=== PATIENT | male | born 1965 | race African-American/Black ===

== ENCOUNTER 2018-05-10 12:00 | Emergency (ER) | payer SELFPAY ==
[~2018-05-10] VITALS: Ht 175.3 cm; Wt 83.5 kg
[2018-05-10 12:52] VITALS: BP 122/80
[2018-05-10] MEDS ORDERED: traMADol HCL 50 MG TAB PO ONE (14:00)
== END 2018-05-10 13:55 | disposition home or self-care (01) ==
LOC: ER 12:07
DX: K40.20 Bilateral inguinal hernia, without obstruction or gangrene, not specified as recurrent (principal); F17.210 Nicotine dependence, cigarettes, uncomplicated; Z88.6 Allergy status to analgesic agent
CPT/HCPCS: 74176

== ENCOUNTER 2018-10-02 02:27 | Emergency (ER) | payer MEDICAID ==
[~2018-10-02] VITALS: Ht 172.7 cm; Wt 81.6 kg
[2018-10-02 02:39] VITALS: BP 127/81
[2018-10-02] MEDS ORDERED: LORazepam 2MG/ML-1ML VIAL IV ONE (03:00)
[2018-10-02 03:06] LABS: Basophils # (auto) 0 uL; Basophils % (auto) 0.4 % (0.0-2.0); Eosinophils # (auto) 0.1 uL; Eosinophils % (auto) 1.1 % (0.0-7.0); Hematocrit 48.6 % (41.0-53.0); Hemoglobin 16.3 g/dL (13.5-17.5); Lymphocytes # (auto) 1.5 uL; Lymphocytes % (auto) 24.8 % (10.0-50.0); Mean Corpuscular Hemoglobin 29.7 pg (28.0-32.0); Mean Corpuscular Hgb Conc. 33.6 g/dL (32.0-36.0); Mean Corpuscular Volume 88.6 fL (80.0-100.0); Monocytes # (auto) 0.5 uL; Monocytes % (auto) 8.6 % (0.0-12.0); Neutrophils % (auto) 65.1 % (37.0-80.0); Nucleated Red Blood Cells % 0.9 %; Platelet Count (auto) 160 10^3/uL (140-450); Red Blood Cells 5.49 10^6/uL (4.5-5.90); Red Cell Distribution Width 14.1 % (11.8-14.3); White Blood Cell 6.1 10^3/uL (4.4-10.8)
[2018-10-02 03:22] LABS: INR 0.97 (0.9-1.15); Prothrombin Time 10.5 sec (9.06-12.60)
[2018-10-02 03:26] LABS: Alanine Aminotransferase 30 U/L (16-61); Albumin 3.9 g/dL (3.4-5.0); Anion Gap 9 (5-15); Aspartate Aminotransferase 22 U/L (15-37); BUN/Creatinine Ratio 11.7; Blood Urea Nitrogen 13 mg/dL (7-18); Calcium 9.3 mg/dL (8.5-10.1); Carbon Dioxide 24 mmol/L (21-32); Chloride 109 mmol/L (98-107); GFR African American 88 mL/min; GFR Non-African American 73 mL/min; Glucose 87 mg/dL (74-106); Magnesium 2.1 mg/dL (1.6-2.6); Sodium 142 mmol/L (136-145)
[2018-10-02 03:31] LABS: Alkaline Phosphatase 88 U/L (45-117); Bilirubin, Total 0.9 mg/dL (0.2-1.0); Total Protein 7.6 g/dL (6.4-8.2)
== END 2018-10-02 03:29 | disposition left against medical advice (07) ==
LOC: EDBD 02:27 → ER 02:31
DX: F12.10 Cannabis abuse, uncomplicated (principal); F15.10 Other stimulant abuse, uncomplicated; F17.210 Nicotine dependence, cigarettes, uncomplicated; Z88.6 Allergy status to analgesic agent
CPT/HCPCS: 36415; 80053; 83735; 83880; 84484; 85025; 85610; 85730; 93005

== ENCOUNTER 2021-05-15 06:46 | Emergency (ER) | payer MEDICAID ==
[~2021-05-15] VITALS: Ht 175.3 cm; Wt 120.2 kg
[2021-05-15 07:36] VITALS: BP 134/86
[2021-05-15 07:56] LABS: Basophils # (auto) 0 10 ^3/uL (0-0.2); Basophils % (auto) 0.7 % (0.0-2.0); Eosinophils # (auto) 0.1 10 ^3/uL (0-0.8); Eosinophils % (auto) 2.1 % (0.0-7.0); Hematocrit 41.6 % (41.0-53.0); Hemoglobin 13.8 g/dL (13.5-17.5); Lymphocytes # (auto) 1.2 10 ^3/uL (0.4-5.4); Lymphocytes % (auto) 20.5 % (10.0-50.0); Mean Corpuscular Hemoglobin 28.4 pg (28.0-32.0); Mean Corpuscular Hgb Conc. 33.1 g/dL (32.0-36.0); Mean Corpuscular Volume 85.6 fL (80.0-100.0); Monocytes # (auto) 0.6 10 ^3/uL (0-1.3); Monocytes % (auto) 11.4 % (0.0-12.0); Neutrophils # (auto) 3.7 10 ^3/uL (1.6-8.6); Neutrophils % (auto) 65.3 % (37.0-80.0); Nucleated Red Blood Cells % 0.1 %; Red Blood Cells 4.86 10^6/uL (4.5-5.90); Red Cell Distribution Width 17.3 % (11.8-14.3); White Blood Cell 5.6 10^3/uL (4.4-10.8)
[2021-05-15 08:15] LABS: Albumin 3.6 g/dL (3.4-5.0); Calcium 8.7 mg/dL (8.5-10.1); Potassium 4.1 mmol/L (3.5-5.1)
[2021-05-15 08:18] LABS: Bilirubin, Total 0.5 mg/dL (0.2-1.0); Total Protein 7.4 g/dL (6.4-8.2); Uric Acid 8.6 mg/dL (3.5-7.2)
[2021-05-15] MEDS ORDERED: HYDROcodone-ACET 5/325MG TAB PO ONE (09:15)
[2021-05-15] MEDS ORDERED: COLC1TAB3 PO (09:49)
[2021-05-15] MEDS ORDERED: INDO25CA17 PO (09:49)
== END 2021-05-15 10:13 | disposition home or self-care (01) ==
LOC: ER 06:46
DX: R60.9 Edema, unspecified (principal); M10.9 Gout, unspecified; M79.89 Other specified soft tissue disorders; I10 Essential (primary) hypertension
CPT/HCPCS: 36415; 80053; 83880; 84550; 85025; 93971

== ENCOUNTER 2021-07-26 13:59 | Emergency (ER) | payer MEDICAID ==
[~2021-07-26] VITALS: Ht 175.3 cm; Wt 122.5 kg
[~2021-07-26 13:59] MED LIST: COLC1TAB3 PO; INDO25CA17 PO
[2021-07-26 14:08] VITALS: BP 126/90
[2021-07-26] MEDS ORDERED: INDOMETHACIN 25 MG CAP PO ONE (14:30)
[2021-07-26] MEDS ORDERED: INDO50CA82 PO (16:59)
== END 2021-07-26 17:30 | disposition home or self-care (01) ==
LOC: ER 13:59
DX: M10.9 Gout, unspecified (principal); M79.10 Myalgia, unspecified site; I10 Essential (primary) hypertension; F17.210 Nicotine dependence, cigarettes, uncomplicated; Z79.899 Other long term (current) drug therapy; Z88.6 Allergy status to analgesic agent
CPT/HCPCS: 36415; 84550

== ENCOUNTER 2022-05-28 05:23 | Emergency (ER) | payer MEDICAID ==
[~2022-05-28] VITALS: Ht 175.3 cm; Wt 130.0 kg
[~2022-05-28 05:23] MED LIST changes: +INDO50CA82 PO
[2022-05-28] MEDS ORDERED: SODIUM CHLORIDE 0.9% 1,000 ML IVB ONE (08:00)
[2022-05-28 08:45] LABS: Albumin 3.6 g/dL (3.4-5.0); Anion Gap 4 (5-15); Blood Alcohol < 3.0 mg/dL (0-5); Blood Urea Nitrogen 12 mg/dL (7-18); Calcium 8.7 mg/dL (8.5-10.1); Carbon Dioxide 26 mmol/L (21-32); Chloride 109 mmol/L (98-107); Glucose 89 mg/dL (74-106); Magnesium 2.9 mg/dL (1.6-2.6); Potassium 3.8 mmol/L (3.5-5.1); Sodium 139 mmol/L (136-145)
[2022-05-28 08:47] LABS: Basophils # (auto) 0 10 ^3/uL (0-0.2); Basophils % (auto) 0.1 % (0.0-2.0); Eosinophils # (auto) 0 10 ^3/uL (0-0.8); Eosinophils % (auto) 0.2 % (0.0-7.0); Hematocrit 51.8 % (41.0-53.0); Hemoglobin 16.3 g/dL (13.5-17.5); Lymphocytes # (auto) 0.7 10 ^3/uL (0.4-5.4); Mean Corpuscular Hemoglobin 28.7 pg (28.0-32.0); Mean Corpuscular Hgb Conc. 31.5 g/dL (32.0-36.0); Monocytes # (auto) 0.8 10 ^3/uL (0-1.3); Monocytes % (auto) 6.2 % (0.0-12.0); Neutrophils # (auto) 10.8 10 ^3/uL (1.6-8.6); Neutrophils % (auto) 87.5 % (37.0-80.0); Nucleated Red Blood Cells % 0.1 %; Red Blood Cells 5.69 10^6/uL (4.5-5.90); Red Cell Distribution Width 14.5 % (11.8-14.3); White Blood Cell 12.3 10^3/uL (4.4-10.8)
[2022-05-28 08:48] LABS: Alanine Aminotransferase 40 U/L (16-61); Alkaline Phosphatase 116 U/L (45-117); Aspartate Aminotransferase 26 U/L (15-37); BUN/Creatinine Ratio 11.7; Bilirubin, Total 0.6 mg/dL (0.2-1.0); GFR African American 95 mL/min; GFR Non-African American 79 mL/min; Total Protein 7.1 g/dL (6.4-8.2)
[2022-05-28 09:40] LABS: Urine Bacteria NONE SEEN /hpf (None Seen); Urine Blood Negative /uL (Negative); Urine Specific Gravity 1.012 (1.001-1.035); Urine WBC 4 /hpf (0 - 3)
[2022-05-28 09:44] LABS: Alcohol, Urine < 3.0 mg/dL (0-10); Amphetamine Screen, Urine POSITIVE (NEGATIVE); Barbiturate Scree,Urine NEGATIVE (NEGATIVE); Benzodiazephine Screen, Urine NEGATIVE (NEGATIVE); Cannabinoid Screen, Urine NEGATIVE (NEGATIVE); Cocaine Screen, Urine NEGATIVE (NEGATIVE); Opiate Scree,Urine NEGATIVE (NEGATIVE); Phencyclidine Screen, Urine NEGATIVE (NEGATIVE)
[2022-05-28] MEDS ORDERED: HYDROcodone-ACET 10/325MG TAB PO ONE (13:00)
[2022-05-28] MEDS ORDERED: HYDR-4902 PO (16:01)
[2022-05-28] MEDS ORDERED: AMOX600S PO (16:01)
[2022-05-28] MEDS ORDERED: CYCL-837 PO (16:01)
[2022-05-28] MEDS ORDERED: AMOX500T86 PO (16:06)
[2022-05-29 08:30] VITALS: BP 91/43
== END 2022-05-29 10:14 | disposition home or self-care (01) ==
LOC: EDBD 05:23 → ER 05:23
DX: S01.81XA Laceration without foreign body of other part of head, initial encounter (principal); S05.12XA Contusion of eyeball and orbital tissues, left eye, initial encounter; S60.922A Unspecified superficial injury of left hand, initial encounter; J32.0 Chronic maxillary sinusitis; M47.892 Other spondylosis, cervical region; I10 Essential (primary) hypertension; F17.210 Nicotine dependence, cigarettes, uncomplicated; F12.90 Cannabis use, unspecified, uncomplicated; F15.90 Other stimulant use, unspecified, uncomplicated; Z79.899 Other long term (current) drug therapy; Z88.6 Allergy status to analgesic agent; Y04.2XXA Assault by strike against or bumped into by another person, initial encounter; Y93.89 Activity, other specified; Y92.89 Other specified places as the place of occurrence of the external cause; Y99.8 Other external cause status
CPT/HCPCS: 12013; 36415; 70450; 70486; 71250; 72125; 73130; 80053; 80307; 80320; 81001; 82962; 83735; 85025; 96360; 99285; J7030